=== PATIENT | male | born 1975 | race Caucasian/White ===

== ENCOUNTER 2017-04-21 15:41 | Emergency (ER) | payer OTHER ==
[~2017-04-21] VITALS: Ht 165.1 cm; Wt 68.9 kg
[~2017-04-21 15:41] MED LIST: ADVIL200 MG PO; DIVALPROEX SOD250 MG PO; FIORICET 50-321 EAC1 PO; ISENTRESS400 MG PO; LITHIUM CARBON300 MG NG; METOCLOPRAMIDE10 MG PO; MOTRIN800 MG PO; NAPROSYN-EC500 MG PO; NOHOMEMEDS; PERCOCET 5/31 TABLET PO; RELPAX20 MG PO; SERTRALINE HCL50 MG PO; TRUVADA1 TABLET PO; ZOLOFT
[2017-04-21 18:47] VITALS: BP 149/103
== END 2017-04-21 18:50 | disposition home or self-care (01) ==
LOC: EME 15:41
DX: G43.909 Migraine, unspecified, not intractable, without status migrainosus (principal); I10 Essential (primary) hypertension; B20 Human immunodeficiency virus [HIV] disease; F17.200 Nicotine dependence, unspecified, uncomplicated
CPT/HCPCS: 99281; 99284; J1200; J1885; J2765; J7030

== ENCOUNTER 2017-05-16 15:30 | Emergency (ER) | payer OTHER ==
[~2017-05-16] VITALS: Ht 165.1 cm; Wt 70.2 kg
[2017-05-16] MEDS ORDERED: EXCEDRIN MIGRA1 EAC3 PO (16:02)
[2017-05-16 17:50] VITALS: BP 128/80
== END 2017-05-16 17:52 | disposition home or self-care (01) ==
LOC: EME 15:30
DX: G43.909 Migraine, unspecified, not intractable, without status migrainosus (principal); I10 Essential (primary) hypertension; Z21 Asymptomatic human immunodeficiency virus [HIV] infection status; F17.200 Nicotine dependence, unspecified, uncomplicated
CPT/HCPCS: 99281; 99285; J0780; J1200; J1885; J3030; J7030

== ENCOUNTER 2017-08-15 20:46 | Emergency (ER) | payer OTHER ==
[~2017-08-15] VITALS: Ht 165.1 cm; Wt 64.2 kg
[~2017-08-15 20:46] MED LIST changes: +EXCEDRIN MIGRA1 EAC3 PO
[2017-08-15 20:52] VITALS: BP 130/96
== END 2017-08-15 23:48 | disposition left against medical advice (07) ==
LOC: EME 20:46
DX: G43.909 Migraine, unspecified, not intractable, without status migrainosus (principal); Z53.21 Procedure and treatment not carried out due to patient leaving prior to being seen by health care provider

== ENCOUNTER 2017-10-11 11:06 | Emergency (ER) | payer OTHER ==
[~2017-10-11] VITALS: Ht 165.1 cm; Wt 63.7 kg
[2017-10-11 14:27] LABS: HEMOGLOBIN 14.3 G/DL (12.5-16.6); MCH 29.1 PG (29.0-34.0); MCV 85.5 FL (86-99); PLATELET COUNT 211 K/uL (156-360); RBC DIS.WIDTH-CV 13.3 % (11.8-14.6); RBC DIS.WIDTH-SD 41.4 % (39-53); RED BLOOD COUNT 4.91 M/uL (4.00-5.50); WHITE BLOOD COUNT 7.9 K/uL (4.1-10.2)
[2017-10-11 14:38] LABS: ALBUMIN 4.4 g/dL (3.2-4.8); CHLORIDE 106 mEq/L (99-109); SODIUM 140 mEq/L (136-147)
[2017-10-11 14:40] LABS: GLUCOSE 92 mg/dL (70-99); TOTAL PROTEIN 7.2 g/dL (6.4-8.3)
[2017-10-11 14:42] LABS: TOTAL BILIRUBIN 0.8 mg/dL (0.0-1.0)
[2017-10-11 14:44] LABS: ALKALINE PHOSPHATASE 78 IU/L (3-129); CREATININE 1.1 mg/dL (0.6-1.3); GFR ESTIMATE (CALCULATED) > 59 mL/min/ (58.99-99999)
[2017-10-11 14:45] LABS: UREA NITROGEN (BUN) 24 mg/dL (9-23)
[2017-10-11 14:46] LABS: AST (GOT) 24 IU/L (2-34)
[2017-10-11 14:47] LABS: ALT (GPT) 25 IU/L (3-49); LIPASE 18 U/L (1.0-51.0)
[2017-10-11 16:30] LABS: APPEARANCE CLEAR ((CLEAR)); BILIRUBIN NEGATIVE; BLOOD NEGATIVE; COLOR YELLOW ((YELLOW)); GLUCOSE (STRIP) NEGATIVE; KETONES NEGATIVE; LEUKOCYTES NEGATIVE; NITRITE NEGATIVE; PROTEIN (STRIP) NEGATIVE; UCUL ADDED? NO; UROBILINOGEN 0.2 MG/DL (0.2-1.0)
[2017-10-11 16:35] LABS: SPECIFIC GRAVITY > 1.060 (1.000-1.030)
[2017-10-11 16:57] VITALS: BP 113/76
== END 2017-10-11 16:58 | disposition home or self-care (01) ==
LOC: EME 11:06
PROVIDERS: Physician Assistant
DX: I86.1 Scrotal varices (principal); I10 Essential (primary) hypertension; Z87.891 Personal history of nicotine dependence; Z21 Asymptomatic human immunodeficiency virus [HIV] infection status
CPT/HCPCS: 74177; 76870; 80053; 81003; 83690; 85027; 99281; 99284

== ENCOUNTER 2017-12-17 11:35 | Emergency (ER) | payer OTHER ==
[~2017-12-17] VITALS: Ht 165.1 cm; Wt 60.4 kg
[2017-12-17 14:28] VITALS: BP 117/63
== END 2017-12-17 14:29 | disposition home or self-care (01) ==
LOC: EME 11:35
DX: G43.909 Migraine, unspecified, not intractable, without status migrainosus (principal); F17.200 Nicotine dependence, unspecified, uncomplicated
CPT/HCPCS: 99281; 99284; J0780; J1200; J7040

== ENCOUNTER 2018-02-19 07:38 | Emergency (ER) | payer OTHER ==
[~2018-02-19] VITALS: Ht 165.1 cm; Wt 60.1 kg
[2018-02-19] MEDS ORDERED: TYLENOL WITH C1 EACH PO (09:04)
[2018-02-19] MEDS ORDERED: FLEXERIL10 MG PO (09:04)
[2018-02-19 09:16] VITALS: BP 132/98
== END 2018-02-19 09:17 | disposition home or self-care (01) ==
LOC: EME 07:38
DX: S39.012A Strain of muscle, fascia and tendon of lower back, initial encounter (principal); X58.XXXA Exposure to other specified factors, initial encounter; I10 Essential (primary) hypertension; M41.9 Scoliosis, unspecified; F17.200 Nicotine dependence, unspecified, uncomplicated; Z87.81 Personal history of (healed) traumatic fracture; Z86.19 Personal history of other infectious and parasitic diseases; Z21 Asymptomatic human immunodeficiency virus [HIV] infection status
CPT/HCPCS: 71046; 99281; 99284; J1885